=== PATIENT | female | born 1985 | race American Indian/Alaskan Native ===

== ENCOUNTER 2021-09-11 08:00 | Emergency (ER) | payer OTHER ==
[2021-09-11] MEDS ORDERED: MORPHINE 4 MG/1 ML INJ IV ONE (09:41)
[2021-09-11] MEDS ORDERED: ONDANSETRON 4 MG/2 ML INJ IV ONE (09:41)
[2021-09-11] MEDS ORDERED: SODIUM CHLORIDE 0.9% 1000 ML 1,000 ML IV ONE (09:41)
--- NOTE | 2021-09-11 09:42 | Emergency Department Report ---
ED Abdominal Pain HPI - General Chief Complaint: Nausea/Vomiting/Diarrhea Stated Complaint: NAUSEA VOMITING Time Seen by Provider: 09/11/21 09:36 Source: patient Mode of arrival: Ambulatory Limitations: No Limitations - History of Present Illness Initial Comments: 36 year old female who denies any significant past medical hx presents to ED with complaints of nausea/vomiting and abdominal pain. Patient states her symptoms started yesterday with vomiting. She reports multiple episodes of vomiting since yesterday. She states now she is just dry heaving. She states she is unable to keep anything down. She denies hematemesis or coffee-ground emesis. She denies diarrhea. She states that the pain has been mainly located in the lower part of abdomen. She denies any UTI symptoms abnormal vaginal discharge. She denies any fever or chills. She states that she did have a few sips of liquor last night, but she was already not feeling well prior to drinking. She denies any ill contacts, recent bad food intake, recent travel or recent antibiotic use. She states that she did have similar symptoms back in the past, and she was evaluated in ER. She states that she was told that she had dehydration but a clear etiology was not given. 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 She states that she is currently on her menstrual cycle but she typically does not get the symptoms when she has a menstrual cycle. MD Complaint: abdominal pain, other (nausea and vomiting ) -: Last night - Related Data Previous Rx's Medication Instructions Recorded Last Taken Type Hyoscyamine Subl [Levsin Sl 0.125 0.125 mg SL Q6HR PRN #20 tab 09/11/21 Unknown Rx TAB] Ondansetron [Zofran Odt] 4 mg PO Q8HR #12 tab.rapdis 09/11/21 Unknown Rx Allergies Allergy/AdvReac Type Severity Reaction Status Date / Time No Known Allergies Allergy Verified 09/11/21 08:59 ED Review of Systems ROS: Stated complaint: NAUSEA VOMITING Other details as noted in HPI Comment: All other systems reviewed and negative Constitutional: denies: chills, fever Eyes: denies: eye pain, eye discharge, vision change ENT: denies: ear pain, throat pain Respiratory: denies: cough, shortness of breath, SOB with exertion, SOB at rest, wheezing Cardiovascular: denies: chest pain, palpitations, edema, syncope, paroxysmal nocturnal dyspnea Gastrointestinal: abdominal pain, nausea, vomiting. denies: diarrhea, constipation, hematemesis, hematochezia Genitourinary: denies: urgency, dysuria, frequency, hematuria, discharge, abnormal menses, dyspareunia Musculoskeletal: as per HPI. denies: joint swelling, arthralgia Skin: denies: rash, lesions, change in color, change in hair/nails, pruritus Neurological: denies: headache, weakness, numbness, paresthesias, confusion, abnormal gait, vertigo Psychiatric: denies: anxiety, depression, auditory hallucinations, visual hallucinations, homicidal thoughts, suicidal thoughts Hematological/Lymphatic: denies: easy bleeding, easy bruising, swollen glands ED Past Medical Hx - Past Medical History Previous Medical History?: No - Surgical History Past Surgical History?: No - Medications Home Medications: Home Medications Medication Instructions Recorded Confirmed Last Taken Type Hyoscyamine Subl [Levsin Sl 0.125 0.125 mg SL Q6HR PRN #20 tab 09/11/21 Unknown Rx TAB] Ondansetron [Zofran Odt] 4 mg PO Q8HR #12 tab.rapdis 09/11/21 Unknown Rx ED Physical Exam - General Limitations: No Limitations General appearance: alert, in distress (patient appears uncomfortable, pacing in room), obese - Head Head exam: Present: atraumatic, normocephalic, normal inspection - Eye Eye exam: Present: normal appearance, PERRL, EOMI Pupils: Present: normal accommodation - ENT ENT exam: Present: normal exam, mucous membranes moist - Neck Neck exam: Present: normal inspection, full ROM - Respiratory Respiratory exam: Present: normal lung sounds bilaterally. Absent: respiratory distress, wheezes, rales, rhonchi - Cardiovascular Cardiovascular Exam: Present: regular rate, normal rhythm, normal heart sounds - GI/Abdominal GI/Abdominal exam: Present: soft. Absent: distended, tenderness, guarding, rebound - Neurological Exam Neurological exam: Present: alert, oriented X3, CN II-XII intact, normal gait - Psychiatric Psychiatric exam: Present: normal affect, normal mood - Skin Skin exam: Present: intact ED Course Vital Signs 09/11/21 09/11/21 08:59 15:22 Temperature 98 F Pulse Rate 84 62 Respiratory 16 18 Rate Blood Pressure 178/114 176/99 [Left] O2 Sat by Pulse 97 100 Oximetry ED Medical Decision Making - Lab Data Result diagrams: 09/11/21 09:45 09/11/21 09:45 - Medical Decision Making Patient feeling better after IV fluids and medication. She has not had any more vomiting during stay. Repeat abdominal exam shows a soft nontender abdomen. She is currently not toxic, and not ill-appearing and not in any significant distress. Labs reviewed -CBC unremarkable, CMP shows slight elevation in her glucose at 138, repeat fingerstick was 128, remainder of CMP unremarkable; lipase was normal. Urinalysis negative for UTI. hCG normal. Discussed all results with patient. Symptoms could be related to a viral illness. Do not suspect an acute intra-abdominal abnormality requiring further testing or CT scan at this time. I did discuss patient glucose levels with her, recommended she continues to monitor it at home and with her PCP. Her blood pressure was also noted to be elevated and she denies any known history of hypertension but I did recommend that she monitors it at home as well with her PCP to determine whether she will need to start on medication. Patient expressed understanding and agree with plan. Patient stable at time of dischar ge. Critical care attestation.: If time is entered above; I have spent that time in minutes in the direct care of this critically ill patient, excluding procedure time. ED Disposition Clinical Impression: Nausea and vomiting, Lower abdominal pain, Gastroenteritis Disposition: HOME / SELF CARE / HOMELESS Is pt being admited?: No Does the pt Need Aspirin: No Condition: Stable Instructions: Abdominal Pain, Adult, Viral Gastroenteritis, Adult, [id number], Nausea and Vomiting, Adult, [place] Diet Additional Instructions: I recommend that you take the Levsin as prescribed to help with abdominal cramping and pain. I also recommend that you take the Zofran as prescribed to help with nausea vomiting. Recommend that you do a bland diet for the next 12 hours and you can advance her diet as tolerated. Continue to drink lots of fluids. Follow-up with your primary care doctor next week. Return to the ER if your symptoms worsens in any way. Prescriptions: Hyoscyamine Subl [Levsin Sl 0.125 TAB] 0.125 mg SL Q6HR PRN #20 tab PRN Reason: abdominal cramp Ondansetron [Zofran Odt] 4 mg PO Q8HR #12 tab.rapdis Referrals: PRIMARY CAREMD [Primary Care Provider] - 3-5 Days JASE ODOM MD [Staff Physician] - 3-5 Days [facility] [Provider Group] - 3-5 Days Forms: Work/School Release Form(ED), Work/School Release Form Time of Disposition: 14:57
[2021-09-11 11:02] LABS: Hematocrit 45.5 % (30.3-42.9); Hemoglobin 14.4 gm/dl (10.1-14.3); Lymphocytes # (Auto) 0.8 K/mm3 (1.2-5.4); Lymphocytes % (Auto) 9.2 % (13.4-35.0); Mean Corpuscular HGB Conc 32 % (30-34); Mean Corpuscular Volume 98 fl (79-97); Monocytes # (Auto) 0.2 K/mm3 (0.0-0.8); Monocytes % (Auto) 2.5 % (0.0-7.3); Platelet Count 141 K/mm3 (140-440); Red Blood Count 4.63 M/mm3 (3.65-5.03); Red Cell Distribution Width 13.5 % (13.2-15.2)
[2021-09-11 11:17] LABS: Alanine Aminotransferase 18 units/L (7-56); Albumin 4.4 g/dL (3.9-5); Blood Urea Nitrogen 7 mg/dL (7-17); Calcium 9.2 mg/dL (8.4-10.2); Hemolysis Index 7
[2021-09-11 11:34] LABS: BUN/Creatinine Ratio 12
[2021-09-11 14:36] LABS: Bilirubin,Urine NEG (Negative); Blood,Urine MOD (Negative); Color,Urine Yellow (Yellow); Mucus,Urine 1+ /HPF; Protein,Urine <15 mg/dL mg/dL (Negative); Urobilinogen,Urine < 2.0 mg/dL (<2.0)
[2021-09-11 14:50] LABS: HCG Qualitative,Urine Negative (Negative)
[2021-09-11 15:22] VITALS: BP 176/99
== END 2021-09-11 15:22 | disposition home or self-care (01) ==
LOC: ED 08:00
DX: R11.2 Nausea with vomiting, unspecified (principal); R10.30 Lower abdominal pain, unspecified; K52.9 Noninfective gastroenteritis and colitis, unspecified
CPT/HCPCS: 36415; 80053; 81001; 81025; 82962; 83690; 85025; 96361; 96374; 96375; 99283; J2270; J2405; J7030; Q0162